=== PATIENT | female | born 1930 | race Hispanic/Latino ===

== ENCOUNTER 2021-06-05 18:14 | Emergency (ER) | payer MEDICARE ==
[~2021-06-05] VITALS: Ht 162.6 cm; Wt 39.9 kg
[2021-06-06 00:09] VITALS: BP 117/62
== END 2021-06-06 00:24 | disposition home or self-care (01) ==
LOC: ER 19:47
DX: R09.02 Hypoxemia (principal); F03.90 Unspecified dementia, unspecified severity, without behavioral disturbance, psychotic disturbance, mood disturbance, and anxiety; R32 Unspecified urinary incontinence; Z20.822 Contact with and (suspected) exposure to COVID-19
CPT/HCPCS: 71045; 93005; 99284; U0002